=== PATIENT | female | born 1955 | race Caucasian/White ===

== ENCOUNTER 2017-04-25 08:03 | Day surgery (SDC) | payer MEDICARE, OTHER ==
--- NOTE | 2017-04-23 11:59 | HISTORY AND PHYSICAL E ---
History and Physical NAME: ZION MIKE : 1955 AGE: 61Y ADMITTED: 04/25/2017 ROOM: REFERRING PHYSICIAN: Nicholas Morales M.D. HISTORY OF PRESENT ILLNESS: The patient is known to me. She did have a colonoscopy in 2016 showing no evidence of polyps. The patient does have a remote history of polyps but recent colonoscopy in 2016 shows no polyps. Now she is complaining of upper GI symptoms, abdominal pain. The patient admitted for upper endoscopy. REVIEW OF SYSTEMS: HEAD, EARS, EYES, NOSE AND THROAT: Sinuses, allergies without any shortness of breath. CARDIAC: Hypertension. Cardiac stent. High cholesterol. ENDOCRINE: Diabetes. GASTROINTESTINAL: Reflux, abdominal pain. MUSCULOSKELETAL: Osteoarthritis. FAMILY HISTORY: Father had heart disease. Mom had a stroke. PHYSICAL EXAMINATION: GENERAL: Pleasant, alert, oriented. VITAL SIGNS: Blood pressure is 110/80, pulse 80, respirations 16, temperature is 98. HEAD, EARS, EYES, NOSE AND THROAT: Normal. ABDOMEN: Soft. NEUROLOGIC: Exam negative. CONCLUSION: 1. Abdominal pain. 2. Reflux. PLAN: 1. Gallbladder ultrasound. 2. Upper endoscopy. DICTATING PHYSICIAN: KLARISSA JOHN M.D. [id number] [id number] PHY#: [id number] ID: [id number] JOB#: [id number] ACCT: [id number] cc:NICHOLAS MORALES M.D., MAHMOUD M.D. >
--- NOTE | 2017-04-24 13:35 | HISTORY AND PHYSICAL E ---
History and Physical NAME: ZION MIKE : 1955 AGE: 61Y ADMITTED: 04/25/2017 ROOM: HISTORY OF PRESENT ILLNESS: The patient presented complaining of abdominal pain. Colonoscopy 10/25/15 shows no polyps, diverticulosis. At the present the patient for upper endoscopy regarding abdominal pain. She does have history of diverticulitis. The patient did have a colonoscopy showing stool ascending colon, no polyps. She does have a remote history of adenoma polyp in her cecum. MEDICATIONS: She takes metoprolol, lisinopril, ranitidine, aspirin, metformin, pravastatin, Lasix, Zantac. PAST HISTORY: Cardiac catheterization with a stent x2. REVIEW OF SYSTEMS: SINUSES: Allergies. RESPIRATORY: Shortness of breath. The patient is overweight. CARDIAC: Hypertension. Cardiac stent. High cholesterol. ENDOCRINE: Diabetes. GASTROINTESTINAL: Colon screening. MUSCULOSKELETAL: Osteoarthritis. PHYSICAL EXAMINATION: VITAL SIGNS: Blood pressure is 110/80, pulse 80, respirations 18, temperature is 98. HEAD, EARS, EYES, NOSE AND THROAT: Normal. ABDOMEN: Soft. NEUROLOGIC: Exam negative. CONCLUSION: 1. Abdominal pain. 2. Reflux. PLAN: 1. Gallbladder ultrasound. 2. Serology for celiac disease. 3. Upper endoscopy scheduled for 04/25/17. 4. Amylase and lipase. DICTATING PHYSICIAN: KLARISSA JOHN M.D. [id number] [id number] PHY#: [id number] ID: [id number] JOB#: [id number] ACCT: [id number] cc:KLARISSA JOHN M.D. >
[~2017-04-25 08:03] MED LIST: EPINEPHRINE INJ 1 MG/10 ML DISP.SYRIN ONE; FENTANYL CITRATE INJ/PF 100 MCG/2 ML AMPUL ONE; FLUMAZENIL INJ 0.5 MG/5 ML VIAL ONE; GLYCOPYRROLATE INJ 0.4 MG/2 ML VIAL ONE; MIDAZOLAM 2 MG/2 ML INJ ONE; NALOXONE HCL INJ/PF 0.4 MG/1 ML SDV ONE; ONDANSETRON HCL INJ/PF 4 MG/2 ML SDV ONE
[2017-04-25 11:00] VITALS: BP 129/72
--- NOTE | 2017-04-25 12:07 | DISCHARGE SUMMARY E ---
Discharge Summary NAME: ZION MIKE : 1955 AGE: 61Y ADMITTED: 04/25/2017 DISCHARGED: 04/25/2017 PROCEDURE: EGD, biopsy. FINAL DIAGNOSES: 1. Duodenitis, moderate. 2. Gastritis, mild. 3. Esophagitis, mild. HISTORY: A 61-year-old female presented with abdominal pain. She is allergic to PENICILLIN and CODEINE. She did have recent colonoscopy in 2016. It showed no evidence of polyps. Upper scope today shows no ulcers. Mild duodenitis. She does have history of osteoarthritis. She takes aspirin and she takes [place] which has aspirin as well at times. DISCHARGE PLAN: Continue Zantac. Consider switching to PPI pending biopsy results. Patient takes Glucophage, Prinivil, metoprolol, atorvastatin, 81 aspirin, [place]. Patient discharged on soft diet. Hold aspirin for 3 days. Awaiting biopsy results. DICTATING PHYSICIAN: KLARISSA JOHN M.D. [id number] [id number] Y#: [id number] ID: [id number] JOB#: [id number] ACCT: [id number] cc:KARL BENTLEY M.D., MAHMOUD M.D. >
--- NOTE | 2017-04-25 12:08 | OPERATIVE REPORT E ---
Operative Report NAME: ZION MIKE : 1955 AGE: 61Y DATE OF SURGERY: 04/25/2017 ROOM: PREOPERATIVE DIAGNOSES: 1. Abdominal pain. 2. Reflux. POSTOPERATIVE DIAGNOSES: 1. Esophagitis, mild. 2. Gastritis, mild. 3. Duodenitis, moderate. OPERATION: 1. Esophagoscopy. 2. Gastroscopy. 3. Duodenoscopy. SURGEON: KLARISSA JOHN M.D. ANESTHESIA: Versed 3; fentanyl 50. TISSUE REMOVED OR ALTERED: Gastric biopsy for H. pylori. DESCRIPTION OF PROCEDURE: The baby scope passed under guided vision. No difficulties. Esophagoscopy: Junction at 37 cm, no stricture, no hernia. Mild esophagitis. Gastroscopy: Mild gastritis. No evidence of ulcers. Duodenoscopy: Moderate duodenitis. No ulcers. CONCLUSION: 1. Moderate duodenitis. 2. Mild gastritis. 3. Mild esophagitis. PLAN: 1. Awaiting biopsy results. 2. Hold aspirin and nonsteroidal 3 days. 3. Consider PPI. DICTATING PHYSICIAN: KLARISSA JOHN M.D. [id number] [id number] PHY#: [id number] ID: [id number] JOB#: [id number] ACCT: [id number] cc:KLARISSA JOHN M.D. >
== END 2017-04-25 10:30 | disposition home or self-care (01) ==
LOC: END 08:03
PROVIDERS: ATTEND Specialist
PROC: 0DB68ZX Excision of Stomach, Via Natural or Artificial Opening Endoscopic, Diagnostic (ICD-10-PCS; principal; 2017-04-25 09:00)
DX: K31.9 Disease of stomach and duodenum, unspecified (principal); K29.80 Duodenitis without bleeding; Z20.9 Contact with and (suspected) exposure to unspecified communicable disease; M19.90 Unspecified osteoarthritis, unspecified site; I10 Essential (primary) hypertension; E11.9 Type 2 diabetes mellitus without complications; E78.00 Pure hypercholesterolemia, unspecified; E66.3 Overweight; Z88.0 Allergy status to penicillin; Z79.899 Other long term (current) drug therapy; Z79.82 Long term (current) use of aspirin; Z88.5 Allergy status to narcotic agent; Z79.84 Long term (current) use of oral hypoglycemic drugs; Z68.34 Body mass index [BMI] 34.0-34.9, adult
CPT/HCPCS: 43239; 82962; 88342 ×2; 88305 ×2; J2250; J3010; J2405; J0171; J2310; J3490

== ENCOUNTER 2017-05-06 06:40 | Day surgery (SDC) | payer MEDICARE, OTHER ==
[~2017-05-06 06:40] MED LIST changes: +BUPIVACAINE HCL 0.75% INJ/PF (7.5 MG/1 ML) 10 ML SDV OD PRN; -EPINEPHRINE INJ 1 MG/10 ML DISP.SYRIN ONE; -FENTANYL CITRATE INJ/PF 100 MCG/2 ML AMPUL ONE; -FLUMAZENIL INJ 0.5 MG/5 ML VIAL ONE; -GLYCOPYRROLATE INJ 0.4 MG/2 ML VIAL ONE; +KETOROLAC TROMETHAMINE 0.45% 4 DROP/0.4 ML DROPERETTE OD PRN; +LIDOCAINE 4% INJ/PF (40 MG/ML) 5 ML AMPUL OD PRN; -MIDAZOLAM 2 MG/2 ML INJ ONE; -NALOXONE HCL INJ/PF 0.4 MG/1 ML SDV ONE; -ONDANSETRON HCL INJ/PF 4 MG/2 ML SDV ONE
[2017-05-06] MEDS: CYCLOPENTOLATE 0.2%/PHENYLEPHRINE 1% OPH SOLN 2 ML OD PRN ×3 (06:49→07:09)
[2017-05-06] MEDS: BESIFLOXACIN HCL 0.6% OPH SUSP 5 ML BOTTLE OD PRN ×3 (06:49→07:58)
[2017-05-06] MEDS: TROPICAMIDE 1% OPH SOLN 3 ML OD PRN ×3 (06:49→07:09)
[2017-05-06] MEDS: TETRACAINE HCL 0.5% OPH SOLN 0.6 ML DROPERETTE OD PRN ×2 (06:50→07:09)
[2017-05-06] MEDS ORDERED: PHENYLEPHRINE/KETOROLAC 1%-0.3% 4 ML VIAL ONE (07:06)
[2017-05-06] MEDS ORDERED: CHONDR SU A NA/HYALUR INTRAOC KIT (SURGICARE) ONE (07:06)
[2017-05-06] MEDS ORDERED: MIDAZOLAM 2 MG/2 ML INJ ONE (07:11)
--- NOTE | 2017-05-06 09:38 | [facility] OPERATIVE REPORT E ---
[facility] Operative Report NAME: ZION MIKE AGE: 62Y DATE OF SURGERY: 05/06/2017 ROOM: PREOPERATIVE DIAGNOSIS: CATARACT, RIGHT EYE. POSTOPERATIVE DIAGNOSIS: CATARACT, RIGHT EYE. PROCEDURE PERFORMED: Phacoemulsification with posterior chamber intraocular lens, right eye. SURGEON: MAGGI ALAMNZA M.D. ANESTHESIA: Topical with MAC. INDICATIONS FOR SURGERY: Difficulty reading small print. Best corrected visual acuity 20/30. PROCEDURE: The patient was brought to the Operating Room and placed on the operative table. Following tetracaine drops, topical anesthesia was administered. This consisted of instrument wipe pledgets soaked in a solution of 4% Xylocaine mixed with 0.75% Marcaine in a 1:2 ratio. A 2 x 1 cm pledget was placed in the superior fornix. A 1 x 1 cm pledget was placed in the inferior fornix. The eye was patched shut for 5 minutes. The patch was removed. The eye was sterilely prepped and draped in the usual manner. Lid speculum was placed in the eye. The pledgets were removed. The 4-0 black silk sutures were placed around the superior and the inferior rectus muscles to be used as traction. A conjunctival peritomy was made at the 10 o'clock position. Hemostasis was obtained with bipolar cautery. A posterior limbal groove was created using a crescent knife and dissected anteriorly towards the cornea. A sharp point blade was used to create a paracentesis site at the 2 o'clock position. A 2.4 mm keratome was used to enter the anterior chamber through the groove. Viscoelastic was injected into the anterior chamber. An anterior capsulotomy was performed using Utrata forceps in a capsulorrhexis fashion. Hydrodissection and hydrodelineation were performed. Phacoemulsification was performed in rfmxop-mvl-ysdiwwv technique. A total of 35 seconds phaco time was used. Following this, the I/A unit was used to remove residual cortex. Viscoelastic was injected into the capsular bag. Intraocular lens model SN60WF, 22.5 diopters, serial number [id number] was placed in the capsular bag. The I/A unit was used to remove residual viscoelastic. The wound was seen to be watertight under high and low pressure, and no sutures were placed. The intraocular lens was well centered. The pressure was adjusted in the eye to normal pressure. The 4-0 black silk sutures and lid speculum were removed. The eye was shielded after Besivance drops were placed. The patient tolerated the procedure well and was sent to the Recovery Room in good condition. DICTATING PHYSICIAN: MAGGI ALMANZA M.D. DICTATING PHYSICIAN: MAGGI ALMANZA M.D. [id number] [id number] PHY#: [id number] ID: [id number] JOB#: [id number] ACCT: [id number] cc:MAGGI ALMANZA M.D. >
--- NOTE | 2017-05-06 14:23 | [facility] DISCHARGE SUMMARY E ---
[facility] Discharge Summary NAME: ZION MIKE AGE: 62Y ADMITTED: 05/06/2017 DISCHARGED: 05/06/2017 FINAL DIAGNOSIS: CATARACT, RIGHT EYE. HOSPITAL COURSE: The patient is a 62-year-old lady who underwent uneventful cataract extraction with intraocular lens implant, right eye, on 05/06/2017. She will be discharged to home. She was instructed to resume preoperative medications, take Tylenol as needed for discomfort, keep her eye shielded, use Besivance, Durezol, and Ilevro at 3 p.m. and 8 p.m., to follow up in my office in 1 day. DICTATING PHYSICIAN: MAGGI ALMANZA M.D. [id number] PHY#: [id number] ID: [id number] JOB#: [id number] ACCT: [id number] cc:MAGGI ALMANZA M.D. >
== END 2017-05-06 08:56 | disposition home or self-care (01) ==
LOC: SC 06:40
PROVIDERS: ATTEND Ophthalmology
PROC: 08RJ3JZ Replacement of Right Lens with Synthetic Substitute, Percutaneous Approach (ICD-10-PCS; principal; 2017-05-06 07:30)
DX: H25.811 Combined forms of age-related cataract, right eye (principal); Z96.1 Presence of intraocular lens; H40.013 Open angle with borderline findings, low risk, bilateral; D31.32 Benign neoplasm of left choroid; E11.9 Type 2 diabetes mellitus without complications; I10 Essential (primary) hypertension; G35 Multiple sclerosis; E78.00 Pure hypercholesterolemia, unspecified; K21.9 Gastro-esophageal reflux disease without esophagitis; I25.2 Old myocardial infarction; Z87.891 Personal history of nicotine dependence; Z88.5 Allergy status to narcotic agent; Z88.0 Allergy status to penicillin; Z79.82 Long term (current) use of aspirin; Z79.899 Other long term (current) drug therapy; Z79.84 Long term (current) use of oral hypoglycemic drugs
CPT/HCPCS: 66984; 82962; V2632; J2250; J3490 ×3; A9270; C9447; 142

== ENCOUNTER → 2019-05-26 | Outpatient (CLI) | payer MEDICARE, OTHER ==
--- NOTE | 2019-05-26 08:56 | RADIOLOGY REPORT (SQ) ---
EXAM DESCRIPTION: CT SOFT TISSUE NECK WITH COMPLETED DATE/TIME: 05/26/2019 8:37 am REASON FOR STUDY: NECK MASS (R22.1) R22.1 LOCALIZED SWELLING, MASS AND LUMP, NECK COMPARISON: None. TECHNIQUE: Post IV contrasted scanning from skull base through lung apices with review of bone, soft tissue and lung windows. Reconstructed coronal and sagittal MPR images reviewed. All images stored on PACS. All CT scanners at this facility use dose modulation, iterative reconstruction, and/or weight based d osing when appropriate to reduce radiation dose to as low as reasonably achievable (ALARA). [facility]: Dose Right [facility]: CareDose [facility]: Dose Right [facility]: Teradose 4D [facility]: Fitfu CONTRAST TYPE AND DOSE: contrast/concentration: Isovue 350.00 mg/ml; Total Contrast Delivered: 75.0 ml; Total Saline Delivered: 55.0 ml RENAL FUNCTION: Creatinine 0.7 RADIATION DOSE: . LIMITATIONS: None. FINDINGS: SKULL BASE: Intact. MAJOR SALIVARY GLANDS: No solid or cystic masses. No inflammatory changes. LYMPHADENOPATHY: There are numerous small cervical lymph nodes. At the area of the palpable abnormal ity there is a 1.3 cm lobular lymph node possibly 2 adjacent nodes. No surrounding inflammation. MUCOSAL MASSES OR ASYMMETRY: No mucosal masses or asymmetry. LARYNX/CORDS: No abnormal findings. VASCULAR STRUCTURES: The major vessels are patent. LUNG APICES: Clear. BONES: Intact. THYROID: Normal size. No masses. PARANASAL SINUSES: Clear. OTHER: No other significant finding. IMPRESSION: Slightly lobular appearing lymph node in the submental space measured 1.3 cm. Further e valuation with ultrasound may be helpful for further evaluation. TECHNICAL DOCUMENTATION: JOB ID: [id number] Quality ID # [id number]: Final reports with documentation of one or more dose reduction techniques (e.g., Au tomated exposure control, adjustment of the mA and/or kV according to patient size, use of iterative reconstruction technique) 2010 [employer]- All Rights Reserved Reading location - IP/workstation name: [email or web address]
== END ==
LOC: RAD 07:59
PROVIDERS: ATTEND Surgery
DX: R22.1 Localized swelling, mass and lump, neck (principal)
CPT/HCPCS: 70491; 82565